=== PATIENT | male | born 1960 | race Asian ===

== ENCOUNTER 2019-08-30 13:00 | Outpatient (CLI) | payer OTHER, SELFPAY ==
[2019-08-30 14:33] LABS: Influenza Control Positive
== END 2019-08-30 13:01 | disposition home or self-care (01) ==
LOC: ANHLAB 13:07
PROVIDERS: PCP Family Medicine; Visit Provider Pediatrics
DX: R50.9 Fever, unspecified (principal); R09.89 Other specified symptoms and signs involving the circulatory and respiratory systems
CPT/HCPCS: 87252; 87804

== ENCOUNTER 2021-06-29 00:06 | Day surgery (SDC) | payer OTHER, SELFPAY ==
[2021-06-21 13:20] VITALS: BMI 28.3
[2021-06-29 07:06] VITALS: BP 108/81; PULSE 84; TEMP 36.6; O2SAT 96; BMI 29.5
[2021-06-29] MEDS: LACTATED RINGERS 1,000 ML 150 ML IV CONT (07:15)
--- NOTE | 2021-06-29 07:26 | WPDGICN ---
Assessment and Plan Assessment and plan (1) History of colon polyps: Code(s): Z86.010 - Personal history of colonic polyps Status: Acute Assessment and Plan: Patient has a prior history of colon polyps. For this reason he returns today for surveillance screening colonoscopy. Further recommendations will be given after colonoscopy. GI Consult Note Consult date/time: 06/29/21 07:26 HPI: Ernesto Brantley is a 61 year old male Presents for screening colonoscopy. Patient reports that his current weight appetite and bowel movements are normal. He denies abdominal pain. He has had no bleeding. He does have a prior history of colon polyps. These were identified 2010 while in [place]. Most recent colonoscopy fiber 6 years ago was unremarkable. Patient presents today for surveillance colonoscopy. Review of Systems Review of Systems: All systems reviewed & are unremarkable except as noted in HPI and below PMFSH Social History Social History Smoking status: Never smoker Alcohol intake: current Substance use: never Substance use type: does not use Living arrangements: with family Spiritual care concerns: No Meds Home Medications and Allergies Home Medications Medication Instructions Recorded Confirmed Type atorvastatin 20 mg PO DAILY 06/21/21 06/29/21 History fenofibrate nanocrystallized 145 mg PO DAILY 06/21/21 06/29/21 History lisinopril 20 mg PO DAILY 06/21/21 06/29/21 History metoprolol succinate 25 mg PO DAILY 06/21/21 06/29/21 History Allergies Allergy/AdvReac Type Severity Reaction Status Date / Time No Known Allergies Allergy Mild Verified 06/29/21 07:02 Vital Signs Vital Signs - 24 hr 06/29/21 07:06 Temperature 97.8 F Pulse Rate 84 Blood Pressure 108/81 Pulse Oximetry 96 Exam Narrative: Physical exam reveals patient to be alert. Vital signs stable. HEENT exam is unremarkable. Patient is anicteric. Lungs are clear to auscultation and percussion. Heart is without murmur or extra sounds. Abdominal exam bowel sounds are present soft nontender with no organomegaly. Digital external rectal exam is normal.
--- NOTE | 2021-06-29 07:35 | WPDANESEPPF ---
Anes - Initial Pre Proc Eval Procedure: Operation Date: 06/29/21 08:00 Proposed Procedures p Screening Colonoscopy - Kel Renteria MD Date/Time: 06/29/21 07:35 Surgeon: Kel Renteria MD Pre Op Diagnosis: hx of colon polyps Patient Data Age: 61 Gender: M Height: 1.7 m Weight: 85.4 kg Last Vital Signs Temp 97.8 F 06/29/21 07:06 Pulse 84 06/29/21 07:06 BP 108/81 06/29/21 07:06 Pulse Ox 96 06/29/21 07:06 Allergies Allergy/AdvReac Type Severity Reaction Status Date / Time No Known Allergies Allergy Mild Verified 06/29/21 07:02 Home Medications Medication Instructions Recorded Confirmed Type atorvastatin 20 mg PO DAILY 06/21/21 06/29/21 History fenofibrate nanocrystallized 145 mg PO DAILY 06/21/21 06/29/21 History lisinopril 20 mg PO DAILY 06/21/21 06/29/21 History metoprolol succinate 25 mg PO DAILY 06/21/21 06/29/21 History Patient hx anesthesia problems: none Family hx anesthesia problems: none Results Review: All pre-operative results and documents have been reviewed as part of the pre-operative evaluation. [facility] Social History Social History Smoking status: Never smoker Alcohol intake: current Substance use: never Substance use type: does not use Living arrangements: with family Spiritual care concerns: No Anes - Eval Final PreProcedure Day of Procedure 06/29/21 07:35 Patient weight: overweight Heart: regular rate and rhythm Lungs: clear to auscultation Airway: Mallampati scale class II Neurological: alert and oriented Last oral intake: >/= 8 hours ASA classification: II Emergent: no Anesthetic plan: proceed Anesthesia type and monitoring: general GIVS and standard monitoring Results Review: All pre-operative results and documents have been reviewed as part of the pre-operative evaluation. Informed Consent: The patient's anesthetic plan and its attendant risks and benefits were discussed with the patient/family/POA. Questions were solicited and answers provided to the satisfaction of the patient/family/POA.
[2021-06-29] MEDS: SIMETHICONE ORAL SUSPENSION 20 MG/0.3 ML 30 ML BOTTLE 0.6 ML IRRIGATION (08:02)
[2021-06-29 08:16] VITALS: BP 97/65; PULSE 89; O2SAT 96
[2021-06-29 08:26] VITALS: BP 103/65; PULSE 86; O2SAT 95
== END 2021-06-29 08:45 | disposition home or self-care (01) ==
PROVIDERS: PCP Family Medicine; Visit Provider Internal Medicine Gastroenterology
PROC: 0DJD8ZZ Inspection of Lower Intestinal Tract, Via Natural or Artificial Opening Endoscopic (ICD-10-PCS; CPT 45378; principal; 2021-06-29 08:00)
DX: Z12.11 Encounter for screening for malignant neoplasm of colon (principal); K62.1 Rectal polyp; K64.8 Other hemorrhoids
CPT/HCPCS: 45380; 88305; J2001; J2704; J7120

== ENCOUNTER 2021-09-13 09:17 | Outpatient (CLI) | payer OTHER, SELFPAY ==
--- NOTE | ~2021-09-13 | US_ITS ---
US right upper quadrant INDICATION: Right upper quadrant pain PROCEDURE: Realtime right upper abdominal ultrasound. COMPARISON: No prior studies for comparison. FINDINGS: The pancreas is normal without focal mass or pancreatic ductal dilation. There is fatty in filtration of the liver. There is a liver cyst measuring 3.1 cm. There is normal directional flow in the portal vein. The gallbladder is normal without stones, gallbladder wall thickening or pericholecystic fluid. Comm on bile duct measures 4 mm. No sonographic Ware's sign. IMPRESSION: 1: Hepatic steatosis. Liver cyst measuring 3.1 cm. Reviewed, dictated and finalized at location A. MIXER
== END 2021-09-13 09:18 | disposition home or self-care (01) ==
PROVIDERS: PCP Family Medicine; Visit Provider Family Medicine
DX: R10.11 Right upper quadrant pain (principal); K76.0 Fatty (change of) liver, not elsewhere classified
CPT/HCPCS: 76705

== ENCOUNTER 2023-04-25 08:08 | Outpatient (CLI) | payer OTHER, SELFPAY ==
--- NOTE | ~2023-04-25 | US_ITS ---
US renal BI 04/25/2023 08:57 Procedure: Realtime transabdominal ultrasound of the kidneys and bladder. Indication: Hypertension. Chronic kidney disease. Comparison: CT dated 03/16/2007 Findings: Renal echotexture is increased bilaterally, consistent with chronic medical renal disease. No hydronephrosis, mass or stone is identified. The right kidney measures 10.6 cm and left kidney charleen sures 10.3 cm. Bladder within normal limits. Bilateral ureteral jets are present. Impression: 1: Increased renal cortical echotexture, consistent with chronic renal disease. Reviewed, dictated and finalized at location L. Impression: 1: Increased renal cortical echotexture, consistent with chronic renal disease.
== END 2023-04-25 08:09 | disposition home or self-care (01) ==
LOC: ANHIMG 08:10
PROVIDERS: PCP Family Medicine; Visit Provider Internal Medicine Nephrology
DX: I12.9 Hypertensive chronic kidney disease with stage 1 through stage 4 chronic kidney disease, or unspecified chronic kidney disease (principal); N18.32 Chronic kidney disease, stage 3b
CPT/HCPCS: 76775

== ENCOUNTER 2023-10-07 16:47 | Emergency (ER) | payer OTHER, SELFPAY ==
--- NOTE | 2023-10-07 16:56 | ED.GENADULT ---
HPI - General Adult General Chief complaint: Nausea/Vomiting/Diarrhea Stated complaint: HEADACHE/DIZZY/WEAKNESS/VOMITING Source: patient, RN notes reviewed and old records reviewed Mode of arrival: ambulatory Limitations: no limitations History of Present Illness HPI narrative: 63-year-old male patient presents to [facility] with complaint of nausea, vomiting, headache, myalgia weaknesses started this a.m.. Patient denies any other symptoms. Patient states felt feverish this a.m. so he took Tylenol but did not check his temperature. Related Data Home Medications Medication Instructions Recorded Confirmed [id number] acid-vit 1 tablet PO DAILY 09/05/22 10/07/23 K-lycop 400 mcg-20 mcg-370 mcg tablet (Men's 50 Plus Multivitamin) Allergies Allergy/AdvReac Type Severity Reaction Status Date / Time No Known Allergies Allergy Mild Verified 10/07/23 16:55 Review of Systems Constitutional: Constitutional: Reports no additional constitutional complaints, Reports body ache(s), Denies chills, Denies fatigue, Denies fever(s) and Reports headache(s) Eyes: Eyes: Reports no additional eye complaints and Denies blurry vision ENT: Reports system reviewed and no additional complaints, except as documented, Denies vertigo, Denies dizziness, Denies ear discharge, Denies otalgia, Denies facial pain, Reports headache(s), Denies nasal congestion, Denies nasal discharge, Denies sinus pain, Denies sinus pressure and Denies sore throat Cardiovascular: Cardiovascular: Reports no additional cardiovascular complaints, Denies chest pain, Denies chest pain at rest, Denies rapid heart rate and Denies dyspnea Respiratory: Respiratory: Reports no additional respiratory complaints, Denies chest congestion, Denies cough, Denies pain on inspiration, Denies pain with cough and Denies dyspnea Gastrointestinal: Gastrointestinal: Denies abdominal pain, Denies diarrhea, Reports nausea and Reports vomiting Integumentary/Breasts: Skin/Breast: Denies rash Neurologic: Reports system reviewed and no additional complaints, except as documented, Denies vertigo, Denies dizziness and Denies headache(s) Endocrine: Endocrine: Denies fatigue [facility] Past Medical History Medical History Chronic kidney disease, stage 3a Complex sleep apnea syndrome Dyspepsia Hyperlipidemia, unspecified Hypertensive chronic kidney disease with stage 1 through stage 4 chronic kidney disease, or unspecified chronic kidney disease Male erectile dysfunction, unspecified Obstructive sleep apnea (adult) (pediatric) Other hyperlipidemia Prediabetes Stage 3b chronic kidney disease Social History Social History Smoking status: Former smoker Tobacco type: cigarettes Second hand tobacco smoke exposure: No Alcohol intake: current Alcohol use details: sociaL Substance use: never Substance use type: does not use Do You Feel Safe in your Home?: Yes Lack of Transportation: No Lack of Food: Never True Current Housing: I Have Housing Concerned About Future Housing: No Difficulty Paying Gas/Electric Bills: No Difficulty Paying for Meds: No Currently Unemployed: No Education: Master's Degree or Higher Difficulty w/ Childcare or Family Care: No Living arrangements: with family Occupation/Education: occupation Gender identity (if verbalized by the patient): Male Sexual Orientation (if Verbalized by the Patient): Straight or Heterosexual Spiritual care concerns: No Comments At the time of my signature, I reviewed and agree with the nursing past medical, surgical, social, and family history. There is no relevant family history pertinent to the patient complaint. Exam Const: General: cooperative, no acute distress, ill appearing acutely and well nourished Nutritional Appearance: well nourished Orientation/consciousness: patien
[2023-10-07 16:58] VITALS: BP 137/93; PULSE 134; RESP 16; TEMP 36.3; O2SAT 97
[2023-10-07] MEDS: ONDANSETRON HCL ODT 4 MG TABLET PO (17:11)
== END 2023-10-07 17:23 | disposition home or self-care (01) ==
PROVIDERS: Emergency Provider Registered Nurse; PCP Family Medicine
DX: J02.0 Streptococcal pharyngitis (principal); Z20.822 Contact with and (suspected) exposure to COVID-19; Z87.891 Personal history of nicotine dependence; I12.9 Hypertensive chronic kidney disease with stage 1 through stage 4 chronic kidney disease, or unspecified chronic kidney disease; N18.32 Chronic kidney disease, stage 3b; R73.03 Prediabetes; E78.49 Other hyperlipidemia
CPT/HCPCS: 87426; 87804; 87880; 99213; A9270; G0463